=== PATIENT | male | born 1960 | race Caucasian/White ===

== ENCOUNTER 2019-04-26 08:00 | Outpatient (RCR) | payer OTHER | END 2019-06-26 | disposition still patient (30) | LOC: PT | DX: M65.811 Other synovitis and tenosynovitis, right shoulder (principal); M65.812 Other synovitis and tenosynovitis, left shoulder ==

== ENCOUNTER 2021-03-02 14:03 | Emergency (ER) | payer OTHER ==
[2021-03-02] MEDS ORDERED: MIXED AMPHETAMI15 M1 (15:34)
[2021-03-02] MEDS ORDERED: ESCITALOPRAM20 MG (15:34)
[2021-03-02] MEDS ORDERED: METOPROLOL SUCC50 M1 (15:35)
[2021-03-02] MEDS ORDERED: EZETIMIBE-SIMV1 EAC1 (15:35)
[2021-03-02] MEDS ORDERED: GLYXAMBI1 TAB (15:35)
[2021-03-02] MEDS ORDERED: METAXALONE800 M2 (15:35)
[2021-03-02] MEDS ORDERED: NEURONTIN300 MG/CAP (15:35)
[2021-03-02] MEDS ORDERED: NIACIN ER500 MG (15:35)
[2021-03-02] MEDS ORDERED: ACETAMINOPHEN-H1 TA2 (15:35)
[2021-03-02] MEDS ORDERED: MELOXICAM15 MG (15:35)
[2021-03-02 15:39] LABS: D-DIMER 0.41 mg/L FEU (0.15-0.50)
[2021-03-02] MEDS ORDERED: MECLIZINE PO (16:42)
[2021-03-02 17:05] VITALS: BP 165/72
[2021-03-02 18:07] LABS: URINE APPEARANCE CLEAR; URINE COLOR YELLOW
[2021-03-02 18:08] LABS: URINE BILIRUBIN NEGATIVE (NEGATIVE); URINE BLOOD NEGATIVE (NEGATIVE); URINE KETONE NEGATIVE (NEGATIVE); URINE LEUKOCYTE ESTERASE NEGATIVE (NEGATIVE); URINE NITRATE NEGATIVE (NEGATIVE); URINE PROTEIN(semi-quant) NEGATIVE (NEGATIVE); URINE UROBILINOGEN NORMAL (NORMAL)
== END 2021-03-02 17:05 | disposition home or self-care (01) ==
LOC: ED 14:03
PROVIDERS: Physician Assistant
DX: E11.9 Type 2 diabetes mellitus without complications (principal); R42 Dizziness and giddiness; E11.40 Type 2 diabetes mellitus with diabetic neuropathy, unspecified; I10 Essential (primary) hypertension; E78.5 Hyperlipidemia, unspecified; Z87.891 Personal history of nicotine dependence; Z79.899 Other long term (current) drug therapy; Z79.84 Long term (current) use of oral hypoglycemic drugs

== ENCOUNTER → 2021-03-02 | Outpatient (CLI) | payer OTHER ==
[~2021-03-02] MED LIST: ACETAMINOPHEN-H1 TA2; ESCITALOPRAM20 MG; EZETIMIBE-SIMV1 EAC1; GLYXAMBI1 TAB; MECLIZINE PO; MELOXICAM15 MG; METAXALONE800 M2; METOPROLOL SUCC50 M1; MIXED AMPHETAMI15 M1; NEURONTIN300 MG/CAP; NIACIN ER500 MG
[2021-03-02 12:52] LABS: ALBUMIN 4.1 g/dL (3.4-4.8); HEMOGLOBIN 17.6 g/dL (13.5-18.0); MEAN PLATELET VOLUME 9.9 fl (7.4-10.4); POTASSIUM 4.7 mmol/L (3.5-5.1); RED BLOOD COUNT 5.77 M/mm3 (4.20-5.60); RED CELL DISTRIBUTION WIDTH 12.2 % (11.5-14.5); SODIUM 136 mmol/L (136-145); WHITE BLOOD COUNT 5.1 K/mm3 (4.8-10.8)
[2021-03-02 12:53] LABS: CALCIUM 9.8 mg/dL (8.3-10.5)
[2021-03-02 12:55] LABS: TOTAL PROTEIN 7.6 g/dL (6.2-8.1)
[2021-03-02 12:56] LABS: CARBON DIOXIDE 25 mmol/L (23-31); TOTAL BILIRUBIN 0.5 mg/dL (0.2-1.2)
[2021-03-02 13:00] LABS: AST-SGOT 17 U/L (5-34)
[2021-03-02 13:01] LABS: ALT/SGPT 23 U/L (0-55)
[2021-03-02 13:18] LABS: TROPONIN-I < 0.030 ng/mL (<0.030)
[2021-03-02 13:32] LABS: GLUCOSE 418 mg/dL (75-110)
== END ==
LOC: LAB 12:11
PROVIDERS: Nurse Practitioner Primary Care
DX: R42 Dizziness and giddiness (principal)